=== PATIENT | female | born 1990 | race Two or more races ===

== ENCOUNTER 2016-11-22 17:16 | Emergency (ER) | payer MEDICAID ==
[~2016-11-22] VITALS: Ht 167.6 cm; Wt 66.5 kg
[~2016-11-22 17:16] MED LIST: IBUP-1542 PO; PRENAT PO; TRAM50TA2 PO
[2016-11-22 17:19] VITALS: Ht 167.6 cm; Wt 66.5 kg
--- NOTE | 2016-11-22 18:38 | ERD ---
ER Documentation Chief Complaint Date/Time DATE: 11/22/16 TIME: 18:33 Chief Complaint swelling /abscess/ lump @ right armpit HPI This 26-year-old female presents to the emergency department today for axilla pain, swelling, symptoms started in October with worsening, patient reports past history of a facial cyst which was removed in the same area at age 13. Patient denies any redness, fever, or discharge from the lab. ROS All systems reviewed and are negative except as per history of present illness. Medications Home Meds Active Scripts Naproxen* (Naprosyn*) 500 Mg Tablet, 500 MG PO BID Y for PAIN AND/OR INFLAMMATION, #20 TAB Prov:DASHA,VINNIE 11/22/16 Doxycycline Hyclate* (Doxycycline Hyclate*) 100 Mg Tablet.dr, 100 MG PO BID for 10 Days, TAB Prov:ADSHA,VINNIE 11/22/16 Tramadol HCl (Tramadol HCl) 50 Mg Tablet, 50 MG PO Q4 Y for PAIN, #20 TAB no driving or operating heavy machinery Prov:DEBORA MARTEL PA-C 02/02/16 Ibuprofen* (Motrin*) 600 Mg Tab, 600 MG PO Q6H Y for PAIN AND OR ELEVATED TEMP, #30 TAB Prov:LEXIE SOLIMAN NP 01/29/16 Ibuprofen* (Ibuprofen*) 600 Mg Tab, 600 MG PO Q6, #20 0 Refills Prov:JACOB CAMARGO MD 10/20/14 Reported Medications Multivit/Min/Fol Ac/Iron/Pren* ( S*) 1 Tab Tab, 1 TAB PO DAILY, TAB 04/08/14 Allergies Allergies: Coded Allergies: No Known Drug Allergies (Verified Allergy, Unknown, 11/22/16) PMhx/Soc History of Surgery: Yes ( R underarm hydrogenit Sx) Anesthesia Reaction: No Hx Neurological Disorder: No Hx Respiratory Disorders: No Hx Cardiac Disorders: No Hx Psychiatric Problems: No Hx Miscellaneous Medical Probl: No Hx Alcohol Use: No Hx Substance Use: No Hx Tobacco Use: No Smoking Status: Never smoker Physical Exam Vitals Vital Signs Date Time Temp Pulse Resp B/P Pulse Ox O2 Delivery O2 Flow Rate FiO2 11/22/16 20:21 66 16 113/74 96 Room Air 11/22/16 17:19 99.1 80 17 120/74 99 Stable, triage notes reviewed Physical Exam Const: Well-nourished well-hydrated well-appearing in no acute distress Head: Eyes: ENT: Neck: Resp: Cardio: Abd: Skin: Normal temperature, normal color fluctuating right axilla Back: No midline or flank tenderness Ext: Upper Extremity - bilateral: Skin: No laceration, or evidence of external trauma, soft palpable fluctuating mass right axilla without redness, palpable tenderness Compartments: Soft Motor: Full active range of motion shoulder/elbow/wrist/ hand Sensation: Intact shoulder/pinky/middle finger/thumb web space Bones: Nontender humerus/elbow/forearm/wrist/hand, right axilla tenderness Pulses/Perfusion: 2+ radial, Capillary refill < 2 seconds Neur: Awake and alert Psych: Normal Mood and Affect Results 24 hrs Current Medications Medications (Trade) Dose Ordered Sig/Del Route PRN Reason Start Time Stop Time Status Last Admin Dose Admin Ibuprofen (Motrin) 400 mg ONCE ONCE PO 11/22/16 19:00 11/22/16 19:01 DC 11/22/16 18:44 Procedures/MDM PROCEDURE: Ultrasound of the soft tissues of the right axilla. CLINICAL INDICATION: Palpable lesion in the right axilla. TECHNIQUE: High-resolution sonography of the right axilla at the site of the palpable lesion was performed in the axial and sagittal planes. COMPARISON: None FINDINGS: There is no fluid collection or mass at the site of the palpable lesion in the right axilla. There is no abnormality at the site of the palpable lesion. IMPRESSION: 1. No abnormality at the site of the palpable lesion in the right axilla. 2. Any further management regarding the palpable lesion should be based on clinical grounds. Electronically viewed and signed by .Toby Evans MD, MD on 11/22/2016 19:22 This pleasant 26-year-old female presents to emergency department for evaluation of right axillary fluctuating mass without pustule, drainage, fever, or chills. History of a sebaceous cyst status post removal age 13. Patient reports she has been asymptomatic until recently. Patient reports pain with movement, and swelling. Emergency room course today includes history and physical exam, a right axilla ultrasound to rule out abscess or fluid collection. Radiologist's impression no abnormality at the site of palpable lesion in the right axilla, no fluid collection. This case discussed with supervising physician Dr. Birmingham he plan to discharge patient home with doxycycline 100 mg 1 tab p.o. twice daily, Naprosyn 500 mg 1 tab p.o. twice daily, follow- up with primary care physician or go to [facility] for reevaluation and/or surgical intervention. Patient is stable with no new complaints during ER course, clinically there is no current evidence to suggest abscess, folliculitis, lymphedema, or any other emergent condition appearing to require further evaluation or hospitalization. I feel the patient is stable for discharge at this time. I have discussed results, examination findings, the treatment plan with the patient and family present prior to discharge. Indications for emergent reevaluation, side effects of medication were also discussed. All questions were answered. Patient verbalizes understanding and agrees with plan of care. Departure Diagnosis: Primary Impression: Axillary mass Laterality: right Qualified Code: R22.31 - Mass of right axilla Condition: Good Patient Instructions: [place] Additional Instructions: Thank you for for coming to [facility] for your care today. Please ask your nurse or provider if you have questions about your care today and do not leave until all your questions have been answered. Please use any medications given as directed and follow-up with your doctor (or the doctor you were referred to) in the next 2-3 days. If you do not have a primary care doctor you may follow up at the [facility] (listed below). You may also use motrin and tylenol as needed for fever and/or pain unless instructed otherwise by your provider or nurse. Indications for more urgent follow-up have been discussed, but you may return to the Emergency Department at ANY time for any worrisome or worsening symptoms. If you have abdominal pain, please know that no test or exam you received is perfect and you should follow up within 8 hours for continued pain. If you had any imaging studies today, such as an X-Ray or CT Scan, these studies will be reviewed later by a radiologist. You will be called if there are important findings that were not identified today, so make sure the contact information you provided at registration is correct. If you received any narcotic pain control medicine today, such as Vicodin, Morphine or Dilaudid, your coordination and judgment may be affected for a number of hours. Please do not drive or operate heavy machinery, and you may want someone to assist you at home. If you were given a prescription for narcotic medication, be aware that it is very addictive- use sparingly and only if necessary. VINNIE LOU Nov 22, 2016 18:38
[2016-11-22] MEDS ORDERED: IBUPROFEN 200 MG TAB PO ONE (19:00)
--- NOTE | 2016-11-22 19:22 | RADRPT ---
PROCEDURE: Ultrasound of the soft tissues of the right axilla. CLINICAL INDICATION: Palpable lesion in the right axilla. TECHNIQUE: High-resolution sonography of the right axilla at the site of the palpable lesion was p erformed in the axial and sagittal planes. COMPARISON: None FINDINGS: There is no fluid collection or mass at the site of the palpable lesion in the right axilla. There is no abnormality at the site of the palpable lesion. IMPRESSION: 1. No abnormality at the site of the palpable lesion in the right axilla. 2. Any further management regarding the palpable lesion should be based on clinical grounds. RPTAT: QQ .Toby Evans MD, MD Date Time Electronically viewed and signed by .Toby Evans MD, MD on 11/22/2016 19:22 .R/
[2016-11-22] MEDS ORDERED: DOXY100T20 PO (20:01)
[2016-11-22] MEDS ORDERED: NAPR-260 PO (20:02)
[2016-11-22 20:21] VITALS: BP 113/74; PULSE 66; RESP 16
== END 2016-11-22 20:22 | disposition home or self-care (01) ==
LOC: FTE 17:16
DX: R22.31 Localized swelling, mass and lump, right upper limb (principal)
CPT/HCPCS: 76882; Z7502; Z7610

== ENCOUNTER 2017-02-21 18:26 | Emergency (ER) | END 2017-02-22 01:00 | disposition left against medical advice (07) ==

== ENCOUNTER 2017-03-01 12:22 | Emergency (ER) | END 2017-03-01 17:32 | disposition home or self-care (01) ==

== ENCOUNTER 2017-03-02 13:25 | Emergency (ER) | END 2017-03-02 15:33 | disposition home or self-care (01) ==

== ENCOUNTER 2017-03-04 09:45 | Emergency (ER) | END 2017-03-04 15:09 | disposition home or self-care (01) ==

== ENCOUNTER 2017-07-31 07:29 | Emergency (ER) | END 2017-07-31 09:46 | disposition home or self-care (01) ==

== ENCOUNTER 2017-09-06 03:04 | Emergency (ER) | END 2017-09-06 07:11 | disposition left against medical advice (07) ==

== ENCOUNTER 2017-12-14 10:40 | Outpatient (CLI) | END 2017-12-14 13:45 | disposition home or self-care (01) ==

== ENCOUNTER 2018-01-08 15:00 | Inpatient (IN) | END 2018-01-09 17:50 | disposition home or self-care (01) | DRG 833 ==

== ENCOUNTER 2018-02-16 20:32 | Outpatient (CLI) | payer OTHER ==
[~2018-02-16] VITALS: Ht 167.6 cm; Wt 80.2 kg
[2018-02-16 20:25] VITALS: Ht 167.6 cm; Wt 80.2 kg
[~2018-02-16 20:32] MED LIST changes: -IBUP-1542 PO; -TRAM50TA2 PO
[2018-02-16 20:41] VITALS: BP 99/67; PULSE 90; RESP 17
[2018-02-16] MEDS ORDERED: INSU100V3 IJ ×2 (20:53→20:55)
[2018-02-16] MEDS ORDERED: NPH,100V SQ (20:56)
[2018-02-17] MEDS ORDERED: DEXTROSE 5%-LR 1,000 ML IV SCH (05:30)
[2018-02-17] MEDS ORDERED: LACTATED RINGER'S 1,000 ML IV ONE (05:30)
--- NOTE | 2018-02-17 12:17 | PN ---
Triage Information Date/Time February 17, 2017 Reason for visit: Uterine contractions Weeks of Gestation 37-week /Para 6 para 2 Diabetes: gestational Diabetes management: insulin controlled Hypertention: none Additional information Patient uterine contractions subsided over time Patient apparently has breech presentation Objective Vital Signs Date Temp Pulse Resp B/P (MAP) Pulse Ox O2 O2 Flow FiO2 Time Delivery Rate 02/16/18 98.3 90 17 99/67 (78) Room Air 20:41 Intake and Output 02/16/18 02/16/18 02/17/18 1414:59 22:59 06:59 IntakeIntake Total 670 ml OutputOutput Total 200 ml BalanceBalance 470 ml Heart Rate: 140's Heart Rate Comments Reactive Contractions: < 5 Minutes Apart Exam Long and 1 cm Results/Medications Results 24 hrs Laboratory Tests Test 02/16/18 21:17 02/17/18 04:03 02/17/18 07:03 Urine Color STRAW Urine Clarity CLEAR Urine pH 6.0 Urine Specific [place] 1.006 Urine Ketones NEGATIVE Urine Nitrite NEGATIVE Urine Bilirubin NEGATIVE Urine Urobilinogen NEGATIVE Urine Leukocyte Esterase NEGATIVE Urine Hemoglobin NEGATIVE Urine Glucose 3+ H Urine Total Protein NEGATIVE Bedside Glucose 89 82 Medications Current Medications Dextrose/Lactated Ringer's 1,000 ml @ 125 mls/hr Q8H IV Last administered on 02/17/18at 07:04; Admin Dose 125 MLS/HR; Start 02/17/18 at 05:30 Imaging Results 1. Biophysical profile score 8/8. 2. Amniotic fluid index is not measured at 9.1 cm, previously 13.8 cm on the study of 02/12/2018. 3. Breech presentation. Disposition: Discharge Assessment/Plan Patient uterine contractions subsided over time Was recommended to continue care Refer to OB triage in case of ruptured membrane and or uterine contractions immediately Continue insulin and diet as before JACOB CAMARGO MD Feb 17, 2018 12:17
--- NOTE | 2018-02-17 14:05 | NSTRPT ---
NST Information Datetime Report Generated by CPN: 02/17/2018 14:05 Datetime: 02/13/2018 14:07 NST Information EGA: 36.4 Test Number: 2 Time on Monitor: 02/13/2018 14:22 Time off Monitor: 02/13/2018 15:02 NST Duration (Min): 40 Reason for NST: Diabetes Mellitus; Other Reason for NST Other: A2DM Test and Monitor Explained: Monitor Explained; Test Explained; Verbalized Understanding Pulse: 77 Resp: 18 SBP: 110 DBP: 68 Test Evaluation NST Interventions: None Patient States Movement: Present Contraction Frequency: x 1/90/mild FHR Baseline : 135 Variability: Moderate 6-25bpm Accelerations: 15X15 Decelerations: None FHR Category: Category I NST Results: Reactive Provider Notified: Dr Neno kent blood sugar-julieta consult done Comments: MARYJANE 14.5 CM EFW 60% 3177 GM, 7# 0 OZ AC= 96% FBS 52 Pt instructed in [place] by Augustine Whitlock RN regarding dietary selections _ insulin dosage-Dr Tafti ad justed bedtime _ nph insulin coverage. Pt was incorrectly administering the evening dosage. She was m ixing the nph dose at bedtime with the regular that was to be given before dinner, then repeating the nph at bedtime. Proper dosing reviewed several times _ pt given a written guide for insulin dosage _ correct times to use insulin. Pt verbalizes understanding. Augustine whitlock RN instructed patient in [facility] to us after nst Electronically Signed By E-Signature: with User ID: [id number] Datetime: 02/06/2018 13:30 NST Information EGA: 35.4 NST Duration (Min): 36
== END 2018-02-17 12:25 | disposition home or self-care (01) ==
LOC: OBT 20:32 → L-D 20:33 → OBT 02-17 12:25
PROVIDERS: ATTEND Obstetrics & Gynecology
DX: O62.9 Abnormality of forces of labor, unspecified (principal); O32.1XX0 Maternal care for breech presentation, not applicable or unspecified; O24.414 Gestational diabetes mellitus in pregnancy, insulin controlled; Z3A.37 37 weeks gestation of pregnancy
CPT/HCPCS: 36415; 76818; 81003; 82962; 87086; J7120; J7121; Z7500; G0463

== ENCOUNTER 2018-02-19 14:18 | Inpatient (IN) | payer OTHER ==
[~2018-02-19] VITALS: Ht 167.6 cm; Wt 79.5 kg
[~2018-02-19 14:18] MED LIST changes: +INSU100V3 IJ; +NPH,100V SQ
[2018-02-19] MEDS ORDERED: NPH,100V SQ (15:08)
[2018-02-19 15:09] VITALS: BP 105/66; PULSE 90; RESP 18; Ht 167.6 cm; Wt 79.5 kg
[2018-02-19] MEDS: LACTATED RINGER'S 1,000 ML IV SCH ×2 (16:15→21:26)
[2018-02-19] MEDS ORDERED: GLUCOSE GEL 15 GRAM TUBE BUCCAL PRN (18:00)
[2018-02-19] MEDS ORDERED: GLUCOSE GEL 15 GRAM TUBE PO PRN ×2 (18:00)
[2018-02-19] MEDS ORDERED: DEXTROSE 50% 50 ML SYRINGE IV PRN ×2 (18:00)
[2018-02-19] MEDS ORDERED: ACETAMINOPHEN 325 MG TAB PO PRN (18:00)
[2018-02-19] MEDS ORDERED: GLUCAGON 1 MG INJ IM PRN (18:00)
--- NOTE | 2018-02-19 18:43 | TRIAGE ---
OB Triage Datetime Report Generated by CPN: 02/19/2018 18:43 Datetime: 02/19/2018 17:00 Stage of : OB Triage Maternal Assessment Level of Consciousness: Fully Conscious Labor Evaluation Frequency: 6UC/HR Monitor Mode: External Duration (sec)2399: 80-120 Quality: Mild Resting Tone [place]: Relaxed Heart Rate FHR Baseline Rate: 135 Monitor Mode: External US Variability: Moderate 6-25 bpm Accelerations: 15X15 Decelerations: None Category: Category I Pain Assessment Pain Scale: 0 Pain Goal: 3 Membrane Status: Intact Vaginal Bleeding: None Datetime: 02/19/2018 16:00 Stage of : OB Triage Maternal Assessment Level of Consciousness: Fully Conscious Labor Evaluation Frequency: 3-9 Monitor Mode: External Duration (sec)2399: 80-110 Quality: Mild Resting Tone [place]: Relaxed Heart Rate FHR Baseline Rate: 145 Monitor Mode: External US Variability: Moderate 6-25 bpm Accelerations: 15X15 Decelerations: None Category: Category I Pain Assessment Pain Scale: 0 Pain Goal: 3 Membrane Status: Intact Vaginal Bleeding: None Datetime: 02/19/2018 15:36 Vaginal Exam Dilatation (cms): 1.0 Effacement (%): 50 Station: -3 Exam By: henny Vaginal Bleeding: None Cervix, Consistency: Moderate Cervix, Position: Midposition Datetime: 02/19/2018 15:04 Assessment Type: Triage Maternal Assessment Level of Consciousness: Fully Conscious DTR's/Clonus: DTRs 2+; No Clonus Headache: Denies Blurred Vision: No Respiratory Effort: Unlabored; Regular Rhythm; Equal Expansion Breath Sounds, Left: Clear and Equal Breath Sounds, Right: Clear and Equal Nausea/Vomiting: Denies RUQ Epigastric Pain: Denies Lower Extremities Edema: None Degree: None Upper Extremities Edema: None Degree: None Facial Edema: None Fall Risk Assessment History of Falling: (0) No Secondary Diagnosis: (0) No Ambulatory Aid: (0) Bedrest/Nurse Assist IV Therapy: (0) No Gait: (0) Normal/Bedrest/Immobile Mental Status: (0) Oriented to Own Ability Fall Score: 0 Fall Risk Score Definition: No Risk: No action required Datetime: 02/19/2018 14:39 Time of Arrival: 02/19/2018 14:12 EGA: 38.4 Arrived By: Ambulatory Arrived From: Home Chief Complaint: pt here C/O SPOTTING X 1 [place] Movement: Present Contractions: Irregular Rupture of Membranes: Denies Vaginal Bleeding: None Vaginal Discharge: Denies Recent Sexual Intercouse: Denies Abdominal Trauma: Not Applicable Patient Complaints: Cramping Time Provider Notified: 02/19/2018 15:41 Provider Notified: GOYO Initial Plan: EFM/SVE/ IV HYDRATION Datetime: 02/17/2018 12:02 Labor Evaluation Frequency: x1 Monitor Mode: External Duration (sec)2399: 60 Quality: Mild Pattern: Normal: <= 5 Contractions in 10 Minutes Resting Tone [place]: Relaxed Heart Rate FHR Baseline Rate: 135 Monitor Mode: External US Variability: Moderate 6-25 bpm Accelerations: 15X15 Decelerations: None Category: Category I Datetime: 02/17/2018 11:00 Pattern: Normal: <= 5 Contractions in 10 Minutes Resting Tone [place]: Relaxed Contraction Comments: no uc Heart Rate FHR Baseline Rate: 145 Monitor Mode: External US Variability: Moderate 6-25 bpm Category: Category I Datetime: 02/17/2018 10:00 Pattern: Normal: <= 5 Contractions in 10 Minutes Resting Tone [place]: Relaxed Contraction Comments: no uc Heart Rate FHR Baseline Rate: 135 Monitor Mode: External US Variability: Moderate 6-25 bpm Category: Category I Pain Location: Back Datetime: 02/17/2018 09:01 Labor Evaluation Frequency: x3 Monitor Mode: External Duration (sec)2399: 60-100 Quality: Mild Pattern: Normal: <= 5 Contractions in 10 Minutes Resting Tone [place]: Relaxed Heart Rate FHR Baseline Rate: 135 Monitor Mode: External US Variability: Moderate 6-25 bpm Accelerations: 15X15 Decelerations: None Category: Category I Pain Assessment Pain Scale: 8 Pain Location: Back Pain Goal: 3 Datetime: 02/17/2018 09:00 Vaginal Exam Dilatation (cms): 1.5 Effacement (%): 60 Station: -3 Exam By: wliu Datetime: 02/17/2018 07:49 Labor Evaluation Frequency: x1 Monitor Mode: External Duration (sec)2399: 50 Quality: Mild Pattern: Normal: <= 5 Contractions in 10 Minutes Resting Tone [place]: Relaxed Heart Rate FHR Baseline Rate: 135 Monitor Mode: External US Variability: Moderate 6-25 bpm Accelerations: 15X15 Decelerations: None Category: Category I Pain Assessment Pain Scale: 8 Pain Presence: Intermittent Pain Type: Contraction Pain Location: Abdomen Pain Goal: 3 Datetime: 02/17/2018 07:10 Heart Rate FHR Baseline Rate: 145 Monitor Mode: External US FHR Baseline Changes: No Baseline Change Variability: Moderate 6-25 bpm Accelerations: 15X15 Decelerations: None Category: Category I Datetime: 02/17/2018 06:58 Stage of : Antepartum Maternal Assessment Level of Consciousness: Fully Conscious DTR's/Clonus: DTRs 2+ Headache: Temporal Blurred Vision: No Nausea/Vomiting: Denies RUQ Epigastric Pain: Denies Bedside Blood Glucose: 82 Labor Evaluation Frequency: 10-15 Monitor Mode: External Duration (sec)2399: 50-60 Quality: Mild Pattern: Normal: <= 5 Contractions in 10 Minutes Resting Tone [place]: Relaxed Pain Assessment Pain Scale: 5 Pain Presence: Constant Pain Type: Dull; Ache Pain Location: Head Pain Goal: 0 Pain Relief Measures: Comfort Measures Pain Assessment Comments: PT C/O HEADACHE AND VERTIGO UNTIL I LOWERED HER HEAD...FS 82..WILL START D5 L/R IV ORDERED Membrane Status: Intact Datetime: 02/17/2018 05:28 Heart Rate FHR Baseline Rate: 140 FHR Baseline Changes: No Baseline Change Variability: Moderate 6-25 bpm Accelerations: 15X15 Decelerations: None Category: Category I Datetime: 02/17/2018 05:10 Maternal Assessment Level of Consciousness: Fully Conscious DTR's/Clonus: DTRs 2+ Headache: Denies Blurred Vision: No Respiratory Effort: Unlabored Breath Sounds, Left: Clear and Equal Breath Sounds, Right: Clear and Equal Nausea/Vomiting: Denies RUQ Epigastric Pain: Denies Labor Evaluation Frequency: 10-12 Monitor Mode: External Duration (sec)2399: 60-65 Quality: Moderate Pattern: Normal: <= 5 Contractions in 10 Minutes Resting Tone [place]: Relaxed Heart Rate FHR Baseline Rate: 140 Monitor Mode: External US FHR Baseline Changes: No Baseline Change Variability: Moderate 6-25 bpm Accelerations: 15X15 Decelerations: None Category: Category I Pain Assessment Pain Scale: 8 Pain Presence: Intermittent Pain Type: Cramping; Contraction Pain Location: Abdomen Pain Goal: 2 Pain Relief Measures: Comfort Measures Membrane Status: Intact Datetime: 02/17/2018 04:25 Stage of : OB Triage Labor Evaluation Frequency: 3-4 Monitor Mode: External Duration (sec)2399: 30-40 Quality: Mild Pattern: Normal: <= 5 Contractions in 10 Minutes Resting Tone [place]: Relaxed Datetime: 02/17/2018 03:59 Maternal Assessment Level of Consciousness: Fully Conscious DTR's/Clonus: DTRs 2+ Headache: Denies Blurred Vision: No Respiratory Effort: Unlabored Breath Sounds, Left: Clear and Equal Breath Sounds, Right: Clear and Equal Nausea/Vomiting: Denies RUQ Epigastric Pain: Denies Facial Edema: None Bedside Blood Glucose: 89 Heart Rate FHR Baseline Rate: 145 Monitor Mode: External US FHR Baseline Changes: No Baseline Change Variability: Moderate 6-25 bpm Accelerations: 15X15 Decelerations: None Category: Category I Pain Presence: Intermittent Pain Type: Cramping; Contraction Pain Location: Abdomen Pain Relief Measures: Comfort Measures Membrane Status: Intact Datetime: 02/17/2018 03:00 Labor Evaluation Frequency: occasional Monitor Mode: External Heart Rate FHR Baseline Rate: 130 Monitor Mode: External US Variability: Moderate 6-25 bpm (Annotations: period of minimal variability) Accelerations: 15X15 Decelerations: None Category: Category I Comments: Some loss of contact Datetime: 02/17/2018 02:33 Stage of : OB Triage Temperature Route: Oral Datetime: 02/17/2018 02:31 Quality: Mild Resting Tone [place]: Relaxed Pain Assessment Pain Scale: 8 Pain Presence: Intermittent Pain Type: Contraction Pain Location: Abdomen; Back Pain Relief Measures: Comfort Measures Pain Assessment Comments: Patient is calm and appears comfortable. Patient is sleeping in between c are. Datetime: 02/17/2018 02:01 Labor Evaluation Frequency: 8-10 Monitor Mode: External Duration (sec)2399: 120-180 Pattern: Normal: <= 5 Contractions in 10 Minutes Heart Rate FHR Baseline Rate: 135 Monitor Mode: External US Variability: Moderate 6-25 bpm Accelerations: 15X15 Decelerations: None Category: Category I Comments: Some loss of contact Datetime: 02/17/2018 01:22 Resting Tone [place]: Relaxed Datetime: 02/17/2018 01:16 Quality: Mild Resting Tone [place]: Relaxed Datetime: 02/17/2018 01:15 Vaginal Exam Dilatation (cms): 2.0 Effacement (%): 60 Station: -3 Exam By: Ines Cohn RN Cervix, Consistency: Moderate Cervix, Position: Posterior Datetime: 02/17/2018 01:14 Monitor Mode: Palpation Quality: Mild Resting Tone [place]: Relaxed Datetime: 02/17/2018 01:00 Labor Evaluation Frequency: x1 Monitor Mode: External Duration (sec)2399: 110 Pattern: Normal: <= 5 Contractions in 10 Minutes Heart Rate FHR Baseline Rate: 135 Monitor Mode: External US Variability: Moderate 6-25 bpm Accelerations: 15X15 Decelerations: None Category: Category I Datetime: 02/17/2018 00:52 Quality: Mild Resting Tone [place]: Relaxed Pain Assessment Pain Scale: 8 Pain Presence: Intermittent Pain Type: Contraction Pain Location: Back Pain Relief Measures: Comfort Measures Pain Assessment Comments: Patient is calm and appears comfortable. Datetime: 02/17/2018 00:43 Quality: Mild Resting Tone [place]: Relaxed Datetime: 02/17/2018 00:00 Labor Evaluation Frequency: 6-9 Monitor Mode: External Duration (sec)2399: 40-130 Pattern: Normal: <= 5 Contractions in 10 Minutes Heart Rate FHR Baseline Rate: 130 Monitor Mode: External US Variability: Moderate 6-25 bpm Accelerations: 15X15 Decelerations: None Category: Category I Comments: Some loss of contact Datetime: 02/16/2018 23:43 Quality: Mild Resting Tone [place]: Relaxed Datetime: 02/16/2018 23:20 Quality: Mild Resting Tone [place]: Relaxed Pain Assessment Pain Scale: 8 Pain Presence: Intermittent Pain Type: Contraction Pain Location: Abdomen Pain Relief Measures: Comfort Measures Pain Assessment Comments: Patient is calm and appears comfortable. Datetime: 02/16/2018 23:19 Vaginal Exam Dilatation (cms): 1.5 Effacement (%): 60 Station: -3 Exam By: Ines Cohn RN Vaginal Bleeding: None Cervix, Consistency: Moderate Cervix, Position: Posterior Datetime: 02/16/2018 23:00 Labor Evaluation Frequency: occasional Monitor Mode: External Duration (sec)2399: 40-60 Pattern: Normal: <= 5 Contractions in 10 Minutes Heart Rate FHR Baseline Rate: 135 Monitor Mode: External US Variability: Moderate 6-25 bpm Accelerations: Prolonged Decelerations: None Category: Category I Datetime: 02/16/2018 22:54 Quality: Mild Resting Tone [place]: Relaxed Datetime: 02/16/2018 22:11 Quality: Mild Resting Tone [place]: Relaxed Pain Assessment Pain Scale: 8 Pain Presence: Intermittent Pain Type: Contraction Pain Location: Abdomen Pain Relief Measures: Comfort Measures Pain Assessment Comments: Patient is calm and appears comfortable. Datetime: 02/16/2018 22:00 Labor Evaluation Frequency: occasional Monitor Mode: External Duration (sec)2399: 40-120 Pattern: Normal: <= 5 Contractions in 10 Minutes Heart Rate FHR Baseline Rate: 140 Monitor Mode: External US Variability: Moderate 6-25 bpm Accelerations: 15X15 Decelerations: None Category: Category I Datetime: 02/16/2018 21:09 Quality: Mild Resting Tone [place]: Relaxed Datetime: 02/16/2018 21:05 Quality: Mild Resting Tone [place]: Relaxed Datetime: 02/16/2018 21:04 Vaginal Exam Dilatation (cms): 1.5 Effacement (%): 60 Station: -3 Exam By: Ines Cohn RN Vaginal Bleeding: None Cervix, Consistency: Moderate Cervix, Position: Midposition Datetime: 02/16/2018 21:02 Labor Evaluation Frequency: x1 Monitor Mode: External Duration (sec)2399: 80 Pattern: Normal: <= 5 Contractions in 10 Minutes Heart Rate FHR Baseline Rate: 140 Monitor Mode: External US Variability: Moderate 6-25 bpm Accelerations: 15X15 Decelerations: None Category: Category I Datetime: 02/16/2018 20:41 Stage of : OB Triage Assessment Type: Triage Maternal Assessment Level of Consciousness: Fully Conscious DTR's/Clonus: DTRs 2+; No Clonus Headache: Denies Blurred Vision: No Respiratory Effort: Unlabored; Regular Rhythm; Equal Expansion Breath Sounds, Left: Clear and Equal Breath Sounds, Right: Clear and Equal Nausea/Vomiting: Denies RUQ Epigastric Pain: Denies Lower Extremities Edema: None Degree: None Upper Extremities Edema: None Degree: None Facial Edema: None Temperature Route: Oral Fall Risk Assessment History of Falling: (0) No Secondary Diagnosis: (0) No Ambulatory Aid: (0) Bedrest/Nurse Assist IV Therapy: (0) No Gait: (0) Normal/Bedrest/Immobile Mental Status: (0) Oriented to Own Ability Fall Score: 0 Fall Risk Score Definition: No Risk: No action required Comments: Patient states she feels active movement. Pain Assessment Pain Scale: 8 Pain Presence: Intermittent Pain Type: Contraction Pain Location: Abdomen Pain Relief Measures: Comfort Measures Pain Assessment Comments: Patient is calm and appears comfortable. Datetime: 02/16/2018 20:39 Monitor Mode: External (Annotations: applied) Monitor Mode: External US (Annotations: applied) Datetime: 02/16/2018 20:25 Time of Arrival: 02/16/2018 20:25 EGA: 37.0 Arrived By: Ambulatory Arrived From: Home Chief Complaint: Contractions [id number] that started at 0900 Movement: Present Contractions: Regular Time Contractions Began: 02/16/2018 09:00 Contractions: [id number] per patient Rupture of Membranes: Denies Vaginal Bleeding: None Vaginal Discharge: Denies Recent Sexual Intercouse: Denies Abdominal Trauma: Not Applicable Patient Complaints: Contractions Additional Patient Complaints: history of gestational diabetes on insulin Time Provider Notified: 02/16/2018 21:13 Provider Notified: Dr. Castorena Initial Plan: EFM x2, SVE Datetime: 02/06/2018 13:48 EGA: 36.3 Datetime: 01/08/2018 19:25 Fall Score: 20 Fall Risk Score Definition: No Risk: No action required Datetime: 01/08/2018 17:48 Fall Score: 20 Fall Risk Score Definition: No Risk: No action required Datetime: 01/08/2018 13:15 Fall Score: 0 Fall Risk Score Definition: No Risk: No action required Datetime: 12/14/2017 12:51 EGA: 31.3 Datetime: 12/14/2017 10:48 EGA: 27.6 Datetime: 12/14/2017 10:47 Fall Score: 0 Fall Risk Score Definition: No Risk: No action required
[2018-02-19] MEDS ORDERED: NPH, HUMAN INSULIN ISOPHANE 3ML VIAL SC SCH (21:00)
[2018-02-20] MEDS: LACTATED RINGER'S 1,000 ML IV SCH ×2 (05:16→06:42)
[2018-02-20] MEDS ORDERED: NPH, HUMAN INSULIN ISOPHANE 3ML VIAL SC SCH (07:05)
[2018-02-20] MEDS ORDERED: INSULIN ASPART [NOVOLOG] 3 ML PEN SC SCH (07:35)
[2018-02-20] MEDS ORDERED: PRENATAL VITAMIN PO SCH (09:00)
--- NOTE | 2018-02-20 14:43 | HP ---
Date/Time of Note Date/Time of Note DATE: 02/20/18 TIME: 14:40 OB - History Hx of Present Free Text/Dictation 27-year-old female 6 para 2 AB 3 at 37 weeks and 2 days gestation admitted complaining of the uterine contractions and vaginal spotting few hours prior to admission Last Menstrual Period: May 25, 2018 Estimated Due Date: Mar 02, 2018 : 6 Para: 2 Spontaneous : 3 Care: Good Care Ultrasounds: Normal mid trimester US Obstetrical Complications: Gestational Diabetes Medical Complications: None Past Family/Social History * Past Medical, Surgical, Family and Obstetric Histories reviewed from chart. Blood Type: O+ Rubella: immune RPR/VDRL: Negative GBS Status: Unknown HBsAG: Negative OB Admission Exam Vital Signs Vital Signs Vital Signs Date Temp Pulse Resp B/P (MAP) Pulse Ox O2 O2 Flow FiO2 Time Delivery Rate 02/19/18 98.6 90 18 105/66 Room Air 15:09 (79) Physical Exam HEENT: WNL Heart: Rhythm Normal Lungs: Clear, Equal Abdomen: WNL Extremities: Normal Reflexes: Normal Cervical Dilatation: Fingertip Effacement: 0% Station: -3 Membranes: Intact Heart Rate: 140's Accelerations: Accelerations Present Decelerations: No Decelerations Varibility: Marked Contractions on Admission: >10 Minutes Apart Date/Time Contractions Began: 02/19/2017 p.m. Frequency of Contractions: Every 10-15 minutes Duration: Over 30 seconds Intensity: Mild Last 72 hourBlood Glucose Bedside Glucose - 72 Hours Test 02/19/18 20:11 02/20/18 08:44 02/20/18 11:06 Bedside Glucose 110 mg/dL (70-220) 84 mg/dL (70-220) 81 mg/dL (70-220) OB Assessment/Plan Other Assessment: 37 weeks and 3 days gestation Possible uterine contractions Breech presentation Other plan: Patient was admitted for IV hydration and observation JACOB CAMARGO MD Feb 20, 2018 14:43
--- NOTE | 2018-02-20 14:45 | DS ---
Date/Time of Note Date/Time of Note Over the course of observation patient associated to uterine contraction was subsequently discharged home [facility] Should patient show herself in labor beyond 38 weeks will promptly deliver DATE: 02/20/18 TIME: 14:43 Obstetrical Discharge Record Final Diagnosis Final Diagnosis: Term not delivered Other Final Diagnosis Uterine contractions Complications Gestational Diabetes Condition on Discharge Physical Assessment Last Vitals: See nurse's note Voiding: Yes Bowel Movement: Yes Breast: Soft, non-tender, Filling Fundus: Other Abdomen and Incision: Abdomen is soft and gravid heart tones are reactive On electronic monitoring minimal uterine contractions seen on admission Episiotomy: Not applicable Calf Tenderness: No Patient Condition: Good JACOB CAMARGO MD Feb 20, 2018 14:45
--- NOTE | 2018-02-20 14:51 | PD.PPDC ---
[employer] Discharge Instruction Provider Information Physician Information 27-year-old female admitted with irregular uterine contractions every 10-15 minutes which was associated with IV hydration Diagnosis [id number] Final Diagnosis: [id number] Patient Condition: [id number] Good Diet [id number] Diet: Aacto4e Special Diet Special Diet: 2000-calorie ADA diet Activity/Restrictions [id number] Activity: [id number] Bedrest May Shower [id number] Restrictions: [id number] Nothing in the Vagina Follow-up Follow-up with Physician: 4, Day/Days (In clinic) Return to clinic for Comment: Refer back to hospital in case of regular uterine contractions or vaginal bleeding or ruptured membrane immediate JACOB CAMARGO MD Feb 20, 2018 14:51
== END 2018-02-20 15:30 | disposition home or self-care (01) | DRG 833 ==
LOC: OBT 14:18 → L-D 14:18 → OBT 17:35 → L-D 19:54
PROVIDERS: ADMIT Obstetrics & Gynecology; ATTEND Obstetrics & Gynecology
DX: O60.03 Preterm labor without delivery, third trimester (principal); Z3A.37 37 weeks gestation of pregnancy
CPT/HCPCS: 36415; 82962; 96360; G0463; J1815; J7120

== ENCOUNTER 2018-02-24 13:29 | Inpatient (IN) | payer OTHER ==
[~2018-02-24] VITALS: Ht 162.6 cm; Wt 79.4 kg
[2018-02-24 13:39] VITALS: Ht 162.6 cm; Wt 79.4 kg
[2018-02-24 13:40] VITALS: BP 118/77; PULSE 107; RESP 20
[2018-02-24] MEDS ORDERED: LACTATED RINGER'S 1,000 ML IV SCH (15:00)
--- NOTE | 2018-02-24 17:04 | TRIAGE ---
OB Triage Datetime Report Generated by CPN: 02/24/2018 17:04 Datetime: 02/24/2018 16:29 Labor Evaluation Frequency: 3-4 Monitor Mode: External Duration (sec)2399: 50-80 Quality: Moderate Pattern: Normal: <= 5 Contractions in 10 Minutes Resting Tone Winger: Relaxed Heart Rate FHR Baseline Rate: 140 Monitor Mode: External US FHR Baseline Changes: No Baseline Change Variability: Moderate 6-25 bpm Accelerations: 15X15 Decelerations: None Category: Category I Pain Assessment Pain Scale: 8 Pain Presence: Intermittent Pain Type: Cramping Pain Location: Abdomen Pain Relief Measures: Comfort Measures Datetime: 02/24/2018 15:30 Labor Evaluation Frequency: 3-5 Monitor Mode: External Duration (sec)2399: 60-100 Quality: Mild Pattern: Normal: <= 5 Contractions in 10 Minutes Resting Tone Winger: Relaxed Heart Rate FHR Baseline Rate: 145 Monitor Mode: External US FHR Baseline Changes: No Baseline Change Variability: Moderate 6-25 bpm Accelerations: 15X15 Decelerations: None Category: Category I Pain Assessment Pain Scale: 7 Pain Presence: Intermittent Pain Type: Cramping Pain Location: Abdomen Pain Relief Measures: Comfort Measures Datetime: 02/24/2018 14:31 Labor Evaluation Frequency: OCC Monitor Mode: External Quality: Mild Pattern: Normal: <= 5 Contractions in 10 Minutes Resting Tone Winger: Relaxed Heart Rate FHR Baseline Rate: 155 Monitor Mode: External US FHR Baseline Changes: No Baseline Change Variability: Moderate 6-25 bpm Accelerations: 15X15 Decelerations: None Category: Category I Pain Assessment Pain Scale: 8 Pain Presence: Intermittent Pain Type: Cramping Pain Location: Abdomen Pain Relief Measures: Comfort Measures Datetime: 02/24/2018 14:27 Vaginal Exam Dilatation (cms): 0.5 Effacement (%): 50 Station: -3 Datetime: 02/24/2018 13:33 Time of Arrival: 02/24/2018 13:25 EGA: 38.1 Arrived By: Ambulatory Arrived From: Home Chief Complaint: UC'S Movement: Present Contractions: Irregular Time Contractions Began: 02/23/2018 21:00 Rupture of Membranes: Denies Vaginal Bleeding: None Vaginal Discharge: Present Recent Sexual Intercouse: Denies Abdominal Trauma: Not Applicable Patient Complaints: Contractions Time Provider Notified: 02/24/2018 14:34 Provider Notified: GOYO Initial Plan: NST, BPP AND MARYJANE, IV HYDRATION Datetime: 02/24/2018 13:31 Stage of : OB Triage Assessment Type: Triage Maternal Assessment Level of Consciousness: Fully Conscious DTR's/Clonus: DTRs 2+; No Clonus Headache: Denies Blurred Vision: No Respiratory Effort: Unlabored; Regular Rhythm; Equal Expansion Breath Sounds, Left: Clear and Equal Breath Sounds, Right: Clear and Equal Nausea/Vomiting: Denies RUQ Epigastric Pain: Denies Lower Extremities Edema: None Upper Extremities Edema: None Facial Edema: None Temperature Route: Oral Fall Risk Assessment History of Falling: (0) No Secondary Diagnosis: (0) No Ambulatory Aid: (0) Bedrest/Nurse Assist IV Therapy: (0) No Gait: (0) Normal/Bedrest/Immobile Mental Status: (0) Oriented to Own Ability Fall Score: 0 Fall Risk Score Definition: No Risk: No action required Pain Assessment Pain Scale: 7 Pain Presence: Intermittent Pain Type: Contraction Pain Location: Abdomen; Back Pain Goal: 8 Datetime: 02/20/2018 14:32 Labor Evaluation Frequency: 0 Monitor Mode: External Pattern: Normal: <= 5 Contractions in 10 Minutes Resting Tone Winger: Relaxed Heart Rate FHR Baseline Rate: 140 Monitor Mode: External US FHR Baseline Changes: No Baseline Change Variability: Moderate 6-25 bpm Accelerations: Prolonged Decelerations: None Category: Category I Datetime: 02/20/2018 14:19 Bedside Blood Glucose: 87 Datetime: 02/20/2018 13:30 Labor Evaluation Frequency: 0 Monitor Mode: External Pattern: Normal: <= 5 Contractions in 10 Minutes Resting Tone Winger: Relaxed Heart Rate FHR Baseline Rate: 140 Monitor Mode: External US FHR Baseline Changes: No Baseline Change Variability: Moderate 6-25 bpm Accelerations: 15X15 Decelerations: None Category: Category I Datetime: 02/20/2018 12:30 Labor Evaluation Frequency: 0 Monitor Mode: External Pattern: Normal: <= 5 Contractions in 10 Minutes Resting Tone Winger: Relaxed Heart Rate FHR Baseline Rate: 140 Monitor Mode: External US FHR Baseline Changes: No Baseline Change Variability: Moderate 6-25 bpm Accelerations: 15X15 Decelerations: None Category: Category I Datetime: 02/20/2018 11:30 Labor Evaluation Frequency: 0 Monitor Mode: External Pattern: Normal: <= 5 Contractions in 10 Minutes Resting Tone Winger: Relaxed Heart Rate FHR Baseline Rate: 130 Monitor Mode: External US FHR Baseline Changes: No Baseline Change Variability: Moderate 6-25 bpm Accelerations: 15X15 Decelerations: None Category: Category I Datetime: 02/20/2018 10:30 Labor Evaluation Frequency: 0 Monitor Mode: External Pattern: Normal: <= 5 Contractions in 10 Minutes Resting Tone Winger: Relaxed Heart Rate FHR Baseline Rate: 130 Monitor Mode: External US FHR Baseline Changes: No Baseline Change Variability: Moderate 6-25 bpm Accelerations: 15X15 Decelerations: None Category: Category I Datetime: 02/20/2018 09:28 Labor Evaluation Frequency: 0 Monitor Mode: External Pattern: Normal: <= 5 Contractions in 10 Minutes Heart Rate FHR Baseline Rate: 130 Monitor Mode: External US FHR Baseline Changes: No Baseline Change Variability: Moderate 6-25 bpm Accelerations: 15X15 Decelerations: None Category: Category I Datetime: 02/20/2018 09:00 Labor Evaluation Frequency: X3 Monitor Mode: External Quality: Mild Pattern: Normal: <= 5 Contractions in 10 Minutes Resting Tone Winger: Relaxed Heart Rate FHR Baseline Rate: 130 Monitor Mode: External US FHR Baseline Changes: No Baseline Change Variability: Moderate 6-25 bpm Accelerations: None Decelerations: None Category: Category I Datetime: 02/20/2018 08:30 Assessment Type: Ongoing Assessment Maternal Assessment Level of Consciousness: Fully Conscious DTR's/Clonus: DTRs 2+; No Clonus Headache: Denies Blurred Vision: No Respiratory Effort: Unlabored; Regular Rhythm; Equal Expansion Breath Sounds, Left: Clear and Equal Breath Sounds, Right: Clear and Equal Nausea/Vomiting: Denies RUQ Epigastric Pain: Denies Lower Extremities Edema: None Degree: None Upper Extremities Edema: None Degree: None Facial Edema: None Fall Risk Assessment History of Falling: (0) No Secondary Diagnosis: (0) No Ambulatory Aid: (0) Bedrest/Nurse Assist IV Therapy: (0) No Gait: (0) Normal/Bedrest/Immobile Mental Status: (0) Oriented to Own Ability Fall Score: 0 Fall Risk Score Definition: No Risk: No action required Datetime: 02/20/2018 08:25 Stage of : Antepartum Temperature Route: Oral Pain Assessment Pain Scale: 6 Pain Presence: Constant Pain Type: Pressure; Ache Pain Location: Back (Annotations: LOWER BACK) Pain Goal: 0 Pain Relief Measures: Pain Medication Given; Comfort Measures Datetime: 02/20/2018 08:00 Monitor Mode: External Monitor Mode: OFF PT IN BR Datetime: 02/20/2018 07:38 Stage of : Antepartum Datetime: 02/20/2018 07:30 Labor Evaluation Frequency: 0 Monitor Mode: External Pattern: Normal: <= 5 Contractions in 10 Minutes Resting Tone Winger: Relaxed Heart Rate FHR Baseline Rate: 130 Monitor Mode: External US FHR Baseline Changes: No Baseline Change Variability: Moderate 6-25 bpm Accelerations: 15X15 Decelerations: None Category: Category I Datetime: 02/20/2018 06:00 Labor Evaluation Frequency: 0 Monitor Mode: External Duration (sec)2399: denies Resting Tone Winger: Relaxed Heart Rate FHR Baseline Rate: 135 Monitor Mode: External US Variability: Moderate 6-25 bpm Accelerations: 15X15 Decelerations: None Category: Category I Pain Presence: None/Denies Datetime: 02/20/2018 05:13 Pain Presence: None/Denies Datetime: 02/20/2018 05:00 Labor Evaluation Frequency: 0 Monitor Mode: External Duration (sec)2399: denies Resting Tone Winger: Relaxed Heart Rate FHR Baseline Rate: 135 Monitor Mode: External US Variability: Moderate 6-25 bpm Accelerations: 15X15 Decelerations: None Category: Category I Pain Presence: None/Denies Datetime: 02/20/2018 04:00 Labor Evaluation Frequency: 0 Monitor Mode: External Duration (sec)2399: denies Resting Tone Winger: Relaxed Heart Rate FHR Baseline Rate: 135 Monitor Mode: External US Variability: Moderate 6-25 bpm Accelerations: 15X15 Decelerations: None Category: Category I Pain Presence: None/Denies Datetime: 02/20/2018 03:00 Labor Evaluation Frequency: 0 Monitor Mode: External Duration (sec)2399: denies Resting Tone Winger: Relaxed Heart Rate FHR Baseline Rate: 135 Monitor Mode: External US Variability: Moderate 6-25 bpm Accelerations: 15X15 Decelerations: None Category: Category I Pain Presence: None/Denies Datetime: 02/20/2018 02:00 Labor Evaluation Frequency: x2 Monitor Mode: External Duration (sec)2399: 50-60 Quality: Mild Resting Tone Winger: Relaxed Heart Rate FHR Baseline Rate: 145 Monitor Mode: External US Variability: Moderate 6-25 bpm Accelerations: 15X15 Decelerations: Variable Category: Category II Datetime: 02/20/2018 01:00 Labor Evaluation Frequency: x1 Monitor Mode: External Duration (sec)2399: 60 Quality: Mild Resting Tone Winger: Relaxed Heart Rate FHR Baseline Rate: 140 Monitor Mode: External US Variability: Moderate 6-25 bpm Accelerations: 15X15 Decelerations: None Category: Category I Pain Presence: None/Denies Datetime: 02/20/2018 00:00 Labor Evaluation Frequency: occasional Monitor Mode: External Duration (sec)2399: 40-50 Quality: Mild Resting Tone Winger: Relaxed Heart Rate FHR Baseline Rate: 160 Monitor Mode: External US Variability: Moderate 6-25 bpm Accelerations: 15X15 Decelerations: None Category: Category I Pain Presence: None/Denies Datetime: 02/19/2018 23:00 Labor Evaluation Frequency: 0 Monitor Mode: External Duration (sec)2399: denies Resting Tone Winger: Relaxed Contraction Comments: abdomen soft upon palpation. Heart Rate FHR Baseline Rate: 155 Monitor Mode: External US Variability: Moderate 6-25 bpm Accelerations: 15X15 Decelerations: None Category: Category I Datetime: 02/19/2018 22:18 Stage of : Antepartum Temperature Route: Oral Pain Presence: None/Denies Datetime: 02/19/2018 22:00 Monitor Mode: External Quality: Mild Pattern: Normal: <= 5 Contractions in 10 Minutes Resting Tone Winger: Relaxed Heart Rate FHR Baseline Rate: 145 FHR Baseline Changes: No Baseline Change Variability: Moderate 6-25 bpm Accelerations: 15X15 Decelerations: None Category: Category I Datetime: 02/19/2018 21:23 Stage of : Antepartum Monitor Mode: External Quality: Mild Pattern: Normal: <= 5 Contractions in 10 Minutes Resting Tone Winger: Relaxed Heart Rate FHR Baseline Rate: 140 Monitor Mode: External US FHR Baseline Changes: No Baseline Change Variability: Moderate 6-25 bpm Accelerations: 15X15 Decelerations: None Category: Category I Pain Assessment Pain Scale: 0 Pain Presence: None/Denies Pain Type: N/A Pain Relief Measures: Pain Medication Given Datetime: 02/19/2018 20:18 Stage of : Antepartum Monitor Mode: External Quality: Mild Pattern: Normal: <= 5 Contractions in 10 Minutes Resting Tone Winger: Relaxed Heart Rate FHR Baseline Rate: 140 Monitor Mode: External US FHR Baseline Changes: No Baseline Change Variability: Moderate 6-25 bpm Accelerations: 15X15 Decelerations: None Category: Category I Datetime: 02/19/2018 20:11 Bedside Blood Glucose: 110 Datetime: 02/19/2018 20:00 Assessment Type: Admission Assessment Maternal Assessment Level of Consciousness: Fully Conscious DTR's/Clonus: DTRs 2+; No Clonus Headache: Denies Blurred Vision: No Respiratory Effort: Unlabored; Regular Rhythm; Equal Expansion Breath Sounds, Left: Clear and Equal Breath Sounds, Right: Clear and Equal Nausea/Vomiting: Denies RUQ Epigastric Pain: Denies Lower Extremities Edema: None Degree: None Upper Extremities Edema: None Degree: None Facial Edema: None Fall Risk Assessment History of Falling: (0) No Secondary Diagnosis: (0) No Ambulatory Aid: (0) Bedrest/Nurse Assist IV Therapy: (20) Yes Gait: (0) Normal/Bedrest/Immobile Mental Status: (0) Oriented to Own Ability Fall Score: 20 Fall Risk Score Definition: No Risk: No action required Comment: Datetime: 02/19/2018 19:27 Stage of : Antepartum Monitor Mode: External Quality: Mild Pattern: Normal: <= 5 Contractions in 10 Minutes Resting Tone Winger: Relaxed Heart Rate FHR Baseline Rate: 140 Monitor Mode: External US FHR Baseline Changes: No Baseline Change Variability: Moderate 6-25 bpm Accelerations: 15X15 Decelerations: None Category: Category I Pain Presence: None/Denies Pain Type: N/A Datetime: 02/19/2018 19:00 Stage of : OB Triage Maternal Assessment Level of Consciousness: Fully Conscious Labor Evaluation Frequency: 3UC/HR Monitor Mode: External Duration (sec)2399: 70-90 Quality: Moderate Resting Tone Winger: Relaxed Heart Rate FHR Baseline Rate: 135 Monitor Mode: External US Variability: Moderate 6-25 bpm Accelerations: 15X15 Decelerations: None Category: Category I Pain Assessment Pain Scale: 0 Pain Goal: 3 Membrane Status: Intact Vaginal Bleeding: None Datetime: 02/19/2018 18:00 Stage of : OB Triage Maternal Assessment Level of Consciousness: Fully Conscious Labor Evaluation Frequency: 0 Monitor Mode: External Resting Tone Winger: Relaxed Heart Rate FHR Baseline Rate: 135 Monitor Mode: External US Variability: Moderate 6-25 bpm Accelerations: 15X15 Decelerations: None Category: Category I Pain Assessment Pain Scale: 0 Pain Goal: 3 Membrane Status: Intact Vaginal Bleeding: None Datetime: 02/19/2018 15:04 Fall Score: 0 Fall Risk Score Definition: No Risk: No action required Datetime: 02/19/2018 14:39 EGA: 37.3 Datetime: 02/16/2018 20:41 Fall Score: 0 Fall Risk Score Definition: No Risk: No action required Datetime: 02/16/2018 20:25 EGA: 37.0 Datetime: 02/06/2018 13:48 EGA: 36.3 Datetime: 01/08/2018 19:25 Fall Score: 20 Fall Risk Score Definition: No Risk: No action required Datetime: 01/08/2018 17:48 Fall Score: 20 Fall Risk Score Definition: No Risk: No action required Datetime: 01/08/2018 13:15 Fall Score: 0 Fall Risk Score Definition: No Risk: No action required Datetime: 12/14/2017 12:51 EGA: 31.3 Datetime: 12/14/2017 10:48 EGA: 27.6 Datetime: 12/14/2017 10:47 Fall Score: 0 Fall Risk Score Definition: No Risk: No action required
[2018-02-24] MEDS ORDERED: INSULIN ASPART [NOVOLOG] 3 ML PEN SC SCH (17:30)
[2018-02-24] MEDS ORDERED: GLUCAGON 1 MG INJ IM PRN (18:00)
[2018-02-24] MEDS ORDERED: DEXTROSE 50% 50 ML SYRINGE IV PRN ×2 (18:00)
[2018-02-24] MEDS ORDERED: GLUCOSE GEL 15 GRAM TUBE PO PRN ×2 (18:00)
[2018-02-24] MEDS ORDERED: GLUCOSE GEL 15 GRAM TUBE BUCCAL PRN (18:00)
[2018-02-24] MEDS: LACTATED RINGER'S 1,000 ML IV SCH ×2 (18:15→20:23)
[2018-02-24] MEDS ORDERED: MISOPROSTOL 200 MCG TAB PR PRN (19:00)
[2018-02-24] MEDS ORDERED: BUTORPHANOL 2 MG INJ IV PRN (19:00)
[2018-02-24] MEDS ORDERED: CARBOPROST 250 MCG INJ IM PRN (19:00)
[2018-02-24] MEDS ORDERED: CEFAZOLIN 2 GM/50 ML (PMX) 50 ML IVPB ONE (19:00)
[2018-02-24] MEDS ORDERED: LIDOCAINE 1% (MPF) 30 ML INJ INJ PRN (19:00)
[2018-02-24] MEDS ORDERED: OXYTOCIN 30 UNITS/LR 500 ML IV PRN (19:00)
[2018-02-24] MEDS ORDERED: OXYTOCIN 30 UNITS/LR 500 ML IV SCH ×2 (19:00)
[2018-02-24] MEDS ORDERED: METHYLERGONOVINE 0.2 MG INJ IM PRN (19:00)
[2018-02-24] MEDS ORDERED: ACCU-CHEK XX SCH ×5 (19:35→21:00)
[2018-02-24] MEDS ORDERED: ONDANSETRON 4 MG INJ IV STA (20:28)
[2018-02-24] MEDS ORDERED: CITRIC ACID/NA CITRATE 30 ML CUP PO ONE (20:30)
[2018-02-24] MEDS ORDERED: ONDANSETRON 4 MG INJ ONE (20:31)
[2018-02-24] MEDS ORDERED: CITRIC ACID/NA CITRATE 30 ML CUP ONE (20:32)
[2018-02-24] MEDS ORDERED: NPH, HUMAN INSULIN ISOPHANE 3ML VIAL SC SCH (21:00)
--- NOTE | 2018-02-24 21:56 | PREAC ---
Date/Time of Note Date/Time of Note DATE: 02/24/18 TIME: 21:54 Anesthesia Eval and Record Evaluation Time Pre-Procedure Interview DATE: 02/24/18 TIME: 21:54 Age 27 Sex female NPO: 8 hrs Preoperative diagnosis Breech Presentation in labor Planned procedure Primary Past Medical History Past Medical History: Includes Endo: Diabetes : : (6), Para: (2), Gestational age: (36), Gestational diabetes, Other (Breech Presentation in Labor) Surgery & Anesthesia Issues No known issue Meds Anticoagulation: No Beta Aryan within 24 hr: No Reason Beta Aryan not given: Pt. not on B-Aryan Reported Medications Insulin NPH Human Isophane (Humulin N) 100 Unit/1 Ml Vial, 8 UNIT SQ QHS, VIAL 02/19/18 Insulin NPH Human Isophane (Humulin N) 100 Unit/1 Ml Vial, 18 UNIT SQ AC BREAKFAST, VIAL 02/16/18 Insulin Regular, Human (Humulin R) 100 Unit/1 Ml Vial, 8 UNIT IJ PC BREAKFAST, VIAL 02/16/18 Multivit/Min/Fol Ac/Iron/Pren* ( S*) 1 Tab Tab, 1 TAB PO DAILY, TAB 04/08/14 Discontinued Reported Medications Insulin Regular, Human (Humulin R) 100 Unit/1 Ml Vial, 8 UNIT IJ QHS, VIAL 02/16/18 Current Medications Lactated Ringer's 1,000 ml @ 125 mls/hr Q8H IV Last administered on 02/24/18at 20:23; Admin Dose 125 MLS/HR; Start 02/24/18 at 16:55 Prenat Multivit/ Scales Inspector/Iron/Folic Ac () 1 tab DAILY PO ; Start 02/25/18 at 09:00 Diagnostic Test (Pha) (Accu-Chek) 1 ea AC MEALS AND BEDTIME XX ; Start 02/24/18 at 21:00 Insulin Human NPH (Humulin N) 18 unit AC BREAKFAST SC ; Start 02/25/18 at 07:05 Diagnostic Test (Pha) (Accu-Chek) 1 ea FBSPP XX ; Start 02/24/18 at 19:35 Insulin Human NPH (Humulin N) 12 unit HS SC ; Start 02/24/18 at 21:00 Insulin Aspart (Novolog Insulin Pen) 8 unit AC BREAKFAST DINNER SC ; Start 02/24/18 at 17:30 Miscellaneous Information 1 ea NOTE XX ; Start 02/24/18 at 18:00 Glucose (Glutose) 15 gm Q15M PRN PO DECREASED GLUCOSE; Start 02/24/18 at 18:00 Glucose (Glutose) 22.5 gm Q15M PRN PO DECREASED GLUCOSE; Start 02/24/18 at 18:00 Dextrose (D50w Syringe) 25 ml Q15M PRN IV DECREASED GLUCOSE; Start 02/24/18 at 18:00 Dextrose (D50w Syringe) 50 ml Q15M PRN IV DECREASED GLUCOSE; Start 02/24/18 at 18:00 Glucagon (Glucagen) 1 mg Q15M PRN IM DECREASED GLUCOSE; Start 02/24/18 at 18:00 Glucose (Glutose) 15 gm Q15M PRN BUCCAL DECREASED GLUCOSE; Start 02/24/18 at 18:00 Butorphanol Tartrate (Stadol) 2 mg Q2H PRN IV PAIN; Start 02/24/18 at 19:00 Lidocaine (Xylocaine 1% (Mpf)) 30 ml ONCE PRN INJ EPISIOTOMY; Start 02/24/18 at 19:00 Oxytocin/Lactated Ringer's 500 ml @ 500 mls/hr ONCE POST IV ; Start 02/24/18 at 19:00 Oxytocin/Lactated Ringer's 500 ml @ 125 mls/hr POST IV ; Start 02/24/18 at 19:00 Oxytocin/Lactated Ringer's 500 ml @ 0 mls/hr ONCE PRN IV VAGINAL BLEEDING; Start 02/24/18 at 19:00 Methylergonovine Maleate (Methergine) 0.2 mg ONCE PRN IM VAGINAL BLEEDING; Start 02/24/18 at 19:00 Carboprost Tromethamine (Hemabate) 250 mcg ONCE PRN IM VAGINAL BLEEDING; Start 02/24/18 at 19:00 Misoprostol (Cytotec) 1,000 mcg ONCE PRN [place] VAGINAL BLEEDING; Start 02/24/18 at 19:00 Meds reviewed: Yes Allergies Coded Allergies: No Known Allergy (Unverified , 02/24/18) Allergies Reviewed: Yes Labs/Studies Labs Reviewed: Reviewed by anesthesiologist Result Diagram: 02/24/18190402/24/181904 Laboratory Tests 02/24/18 19:05 Blood Bank Test 02/24/18 19:05 Antibody Screen NEGATIVE Blood Type O POSITIVE Rh Immune Globulin Candidate NO test: Positive Studies: ECG (n/a), CXR (n/a) Pre-procedure Exam Last vitals Vital Signs Date Temp Pulse Resp B/P (MAP) Pulse Ox O2 O2 Flow FiO2 Time Delivery Rate 02/24/18 98.8 107 20 118/77 Room Air 13:40 (91) Airway: Adequate mouth opening, Adequate thyromental dist Mallampati: Mallampati II Teeth: Normal Lung: Normal Heart: Normal ASA Physical Status ASA physical status: 2 Emergency: E Planned Anesthetic Neuraxial: Spinal Planned Pain Management Sub-arachniod narcotics, Parenteral pain med Pre-operative Attestations Prior to commencing anesthesia and surgery, the patient was re-evaluated, there was verification of: *The patient's identity *The results of appropriate recent lab work and preoperative vital signs *The above evaluation not changing prior to induction *Anesthetic plan, risk benefits, alternative and complications discussed with patient/family; questions answered; patient/family understands, accepts and wishes to proceed. CARLOS CHAVARRIA MD Feb 24, 2018 21:56
[2018-02-24] MEDS ORDERED: DEXTROSE 5%-LR 1,000 ML IV SCH (22:00)
[2018-02-24] MEDS ORDERED: PHENYLephrine (100 MCG/ML) 10ML SYG ONE (22:11)
[2018-02-24] MEDS ORDERED: morphine SULFATE/PF (10 MG/10 ML) INJ ONE (22:11)
[2018-02-24] MEDS ORDERED: OXYTOCIN 10 UNIT INJ ONE (22:11)
--- NOTE | 2018-02-24 22:21 | HP ---
Date/Time of Note Date/Time of Note DATE: 02/24/18 TIME: 22:13 OB - History Hx of Present Free Text/Dictation This is the third admission for this 27-year-old female 6 para 2 AB 3 at 38 weeks with a known breech presentation complaining of onset of labor pain started a few hours prior to admission Patient is gestational diabetic Last Menstrual Period: May 25, 2017 Estimated Due Date: Mar 09, 2018 : 6 Para: 2 Spontaneous : 3 Care: Good Care Ultrasounds: Normal mid trimester US Obstetrical Complications: Gestational Diabetes Medical Complications: None Past Family/Social History * Past Medical, Surgical, Family and Obstetric Histories reviewed from chart. Blood Type: O+ Rubella: immune RPR/VDRL: Negative GBS Status: Negative HBsAG: Negative OB Admission Exam Vital Signs Vital Signs Vital Signs Date Temp Pulse Resp B/P (MAP) Pulse Ox O2 O2 Flow FiO2 Time Delivery Rate 02/24/18 98.8 107 20 118/77 Room Air 13:40 (91) Physical Exam HEENT: WNL Heart: Rhythm Normal Lungs: Clear, Equal Abdomen: WNL Extremities: Normal Reflexes: Normal Cervical Dilatation: 1cm Effacement: 25% Station: -3 Membranes: Intact Heart Rate: 140's Accelerations: Accelerations Present Decelerations: No Decelerations Varibility: Marked Contractions on Admission: < 5 Minutes Apart Date/Time Contractions Began: 02/24/2017 Frequency of Contractions: Every 2-3 minutes Duration: Over 60 seconds Intensity: Moderate Last 72 hourBlood Glucose Bedside Glucose - 72 Hours Test 02/24/18 19:17 Bedside Glucose 69 mg/dL (70-220) L Last 72 hours Lab Results CBC & BMP 02/24/18 19:05 Liver Function Test 02/24/18 19:05 Alanine Aminotransferase (ALT/SGPT) 20 Albumin 3.3 Alkaline Phosphatase 168 H Aspartate Amino Transf (AST/SGOT) 21 Direct Bilirubin 0.00 Total Protein 6.6 OB Assessment/Plan Other Assessment: Term gestation Breech presentation which was confirmed by ultrasound Labor pains Gestational diabetes Other plan: Primary delivery JACOB CAMARGO MD Feb 24, 2018 22:21
[2018-02-24] MEDS ORDERED: NALOXONE (0.4 MG/ML) INJ IV PRN (22:30)
[2018-02-24] MEDS ORDERED: OXYCODONE/ACETAMINOPHEN (5/325) TAB PO PRN (22:30)
[2018-02-24] MEDS ORDERED: NALBUPHINE HCL (10 MG/1 ML) INJ IV PRN (22:30)
[2018-02-24] MEDS ORDERED: HYDROmorphONE 0.5 MG/0.5 ML SYG IV PRN ×2 (22:30)
[2018-02-24] MEDS ORDERED: morphine 2 MG INJ IV PRN ×2 (22:30)
[2018-02-24] MEDS ORDERED: DIPHENHYDRAMINE 50 MG INJ IV PRN ×2 (22:30)
[2018-02-24] MEDS ORDERED: HYDROmorphONE 1 MG/5 ML IV SYRINGE IV PRN ×2 (22:30)
[2018-02-24] MEDS ORDERED: MEPERIDINE 25 MG INJ IV PRN (22:30)
[2018-02-24] MEDS ORDERED: ONDANSETRON 4 MG INJ IV PRN ×2 (22:30)
[2018-02-24] MEDS ORDERED: HYDROCODONE/APAP (5/325) TAB PO PRN (22:30)
[2018-02-24] MEDS ORDERED: KETOROLAC 30 MG INJ IV PRN (22:30)
[2018-02-24] MEDS ORDERED: FENTAnyl 50 MCG/ML VIAL IV PRN ×2 (22:30)
[2018-02-24] MEDS ORDERED: EPHEDrine SULFATE 50 MG/5 ML SYG IV PRN (22:30)
[2018-02-24] MEDS ORDERED: ACETAMINOPHEN 500 MG TAB PO PRN (22:30)
[2018-02-24] MEDS ORDERED: DEXAMETHASONE 4 MG/ML 1 ML INJ ONE (22:41)
[2018-02-24] MEDS ORDERED: METOCLOPRAMIDE 10 MG INJ ONE (22:41)
[2018-02-24] MEDS ORDERED: KETOROLAC 30 MG INJ ONE (22:41)
[2018-02-24] MEDS ORDERED: MEPERIDINE 100 MG INJ ONE (22:53)
[2018-02-24] MEDS ORDERED: KETOROLAC 60 MG INJ IM STA (23:06)
--- NOTE | 2018-02-24 23:15 | OPR ---
Operative Report Planned Procedure Free Text/Dictation 27-year-old female at 38 weeks with labor pain and breech presentation Procedure date Feb 24, 2018 Procedure(s) Primary section Performed by see signature line Media Services Specialist: KE RAM MD Anesthesiologist: CARLOS CHAVARRIA MD Pre-procedure diagnosis 38 weeks gestation Labor pains Breech presentation [id number] Anesthesia Type: [id number] spinal Post-Procedure Post-procedure diagnosis Status post primary section Findings Live Baby with luis felipe breech presentation Clear amniotic fluid Normal-appearing right and left fallopian tubes and ovaries Estimated Blood Loss: 500 - 600 mls Specimen(s) none Grafts/Implant(s) none Complication(s) none Pt Condition post procedure: stable Disposition: PACU Procedure Description Under satisfactory anaesthesia a Pfannenstiel incision was made two fingerbreadth above and parallel to the symphysis of pubis. Incision was extended laterally to the border of the Recti muscles on either sides. Incision was carried down with sharp and blunt dissection until fascia was reached. Anterior Recti muscle fascia was incised in mid portion and incision extended laterally to the border of skin incision. Fascia was mobilized from muscle superiorly and Recti muscles were from midline using sharp and blunt dissection. Peritoneum was visualized; Avoiding bowel and bladder it was incised . Incision was extended superiorly and inferiorly. Bladder blade was placed. Posterior peritoneum covering the lower segment of the uterus and lower segment of the uterus were incised. Incision was extended laterally to the border of Round Lig. on either sides and baby was delivered via total breech extraction without any difficulty. Amniotic fluid appeared clear. Cord blood was obtained and cord had 3 vessels . Placenta was delivered spontaneously and appeared intact and complete. Intrauterine cavity was rubbed with a laparotomy sponge. Uterine incision was closed in 2 layers using running stitches of No1 Monocryl. Hemostasis appeared secure. Ovaries and Fallopian tubes were within normal limits. Announcing needle, lap sponge and instrument count to be correct abdomen was closed in layers as follows: Peritoneum and Recti muscles with running stitches of 2-0 Vicryl. Fascia with running stitch of No 1 PDS. Subcutaneous tissue with running stitches of 2-0 Monocryl and skin was closed using alison. Patient tolerated the procedure well and was transferred to [facility] in good condition. JACOB CAMARGO MD Feb 24, 2018 23:15
[2018-02-24] MEDS ORDERED: AZITHROMYCIN 500MG/NS (PMX) 250 ML IVPB ONE (23:30)
--- NOTE | 2018-02-24 23:34 | PAC ---
Date/Time of Note Date/Time of Note DATE: 02/24/18 TIME: 23:34 Post-Anesthesia Notes Post-Anesthesia Note Last documented vital signs Vital Signs Date Temp Pulse Resp B/P (MAP) Pulse Ox O2 O2 Flow FiO2 Time Delivery Rate 02/24/18 98.8 107 20 118/77 98 Room Air 23:40 (91) Activity: WNL Respiratory function: WNL Cardiovascular function: WNL Mental status: Baseline Pain reasonably controlled: Yes Hydration appropriate: Yes Nausea/Vomiting absent: Yes CARLOS CHAVARRIA MD Feb 24, 2018 23:34
[2018-02-25] VITALS (7 sets, daily range): BP systolic 98–113; BP diastolic 58–82; PULSE 65–82; RESP 18–20
[2018-02-25] MEDS ORDERED: LACTATED RINGER'S 1,000 ML IV SCH (02:11)
[2018-02-25] MEDS ORDERED: CARBOPROST 250 MCG INJ IM PRN (02:30)
[2018-02-25] MEDS ORDERED: NA PHOSPHATE/BIPHOS 133 ML ENEMA PR PRN (02:30)
[2018-02-25] MEDS ORDERED: METHYLERGONOVINE 0.2 MG INJ IM PRN (02:30)
[2018-02-25] MEDS ORDERED: OXYCODONE/ACETAMINOPHEN (5/325) TAB PO PRN (02:30)
[2018-02-25] MEDS ORDERED: LANOLIN HPA 1 PKT TOP PRN (02:30)
[2018-02-25] MEDS ORDERED: MISOPROSTOL 200 MCG TAB PR PRN (02:30)
[2018-02-25] MEDS ORDERED: HYDROCODONE/APAP (5/325) TAB PO PRN (02:30)
[2018-02-25] MEDS ORDERED: OXYTOCIN 30 UNITS/LR 500 ML IV PRN (02:30)
[2018-02-25] MEDS ORDERED: GLUCOSE GEL 15 GRAM TUBE PO PRN ×2 (03:00)
[2018-02-25] MEDS ORDERED: GLUCOSE GEL 15 GRAM TUBE BUCCAL PRN (03:00)
[2018-02-25] MEDS ORDERED: DEXTROSE 50% 50 ML SYRINGE IV PRN ×2 (03:00)
[2018-02-25] MEDS ORDERED: GLUCAGON 1 MG INJ IM PRN (03:00)
[2018-02-25] MEDS: CEFAZOLIN 2 GM/50 ML (PMX) 50 ML IVPB SCH ×3 (05:28→21:02)
[2018-02-25] MEDS ORDERED: NPH, HUMAN INSULIN ISOPHANE 3ML VIAL SC SCH (07:05)
[2018-02-25] MEDS: ACCU-CHEK XX SCH ×4 (08:45→21:02)
[2018-02-25] MEDS: PRENATAL VITAMIN PO SCH (08:51)
[2018-02-25] MEDS: SENNA/DOCUSATE NA (8.6MG/50MG) TAB PO SCH ×2 (08:51→21:00)
[2018-02-25] MEDS: metFORMIN 500 MG TAB PO SCH ×2 (08:52→17:50)
[2018-02-25] MEDS ORDERED: BISACODYL 10 MG SUPP PR ONE (11:00)
[2018-02-25] MEDS: CLINDAMYCIN 300 MG CAP PO SCH ×3 (12:03→23:42)
[2018-02-25] MEDS ORDERED: morphine 2 MG INJ IV PRN ×2 (18:30)
--- NOTE | 2018-02-25 19:19 | PN ---
Date/Time of Note Date/Time of Note DATE: 02/25/18 TIME: 19:18 Assessment/Plan VTE Prophylaxis VTE Prophylaxis Intervention: ambulation Lines/Catheters IV Catheter Type (from Nrs): Saline Lock Assessment/Plan Assessment/Plan Status post postop day #1 Will advance diet and ambulate Continue to monitor vital signs Repeat CBC following day for elevated white count and a left shift Subjective 24 Hr Interval Summary No bowel movement but passing flatus Constitutional: no complaints, improved, ambulates, BM, flatus, urine output Pain Control: well controlled Exam/Review of Systems Vital Signs Vitals Vital Signs Date Temp Pulse Resp B/P (MAP) Pulse Ox O2 O2 Flow FiO2 Time Delivery Rate 02/25/18 97.9 65 20 103/59 99 16:19 (74) 02/25/18 Room Air 16:00 Intake and Output 02/24/18 02/24/18 02/25/18 1515:00 23:00 07:00 IntakeIntake Total 3500 ml 2300 ml OutputOutput Total 750 ml 1977 ml BalanceBalance 2750 ml 323 ml Exam Free Text/Dictation Abdomen is soft present bowel sounds and abdomen does not seem distended Incision is covered Constitutional: alert, oriented, well developed Psych: no complaints, nl mood/affect Head: normocephalic, atraumatic Eyes: nl conjunctiva, EOMI, nl lids, nl sclera ENMT: nl external ears & nose, nl lips & teeth, nl nasal mucosa & septum, mucosa pink and moist Neck: supple, non-tender Respiratory: clear to auscultation, normal air movement Cardiovascular: regular rate and rhythm, nl pulses Gastrointestinal: soft, nl liver, spleen, non-tender Musculoskeletal: nl extremities to inspection, nl gait and stance Extremities: normal pulses Neurological: RESTORATIVE COORDINATOR II-XII intact, nl mental status, nl speech, nl strength Skin: nl turgor, rash or lesions Lymph: nl lymph nodes Results Result Diagram: 02/25/18 0727 02/24/18 1905 JACOB CAMARGO MD Feb 25, 2018 19:19
[2018-02-26 04:04] VITALS: BP 101/69; PULSE 70; RESP 18
[2018-02-26] MEDS ORDERED: IBUPROFEN 800 MG TAB ONE (05:04)
[2018-02-26] MEDS: CLINDAMYCIN 300 MG CAP PO SCH ×2 (05:44→11:48)
[2018-02-26 08:00] VITALS: BP 102/66; PULSE 74; RESP 17
[2018-02-26] MEDS: ACCU-CHEK XX SCH ×4 (08:08→20:52)
[2018-02-26] MEDS: PRENATAL VITAMIN PO SCH (08:55)
[2018-02-26] MEDS: metFORMIN 500 MG TAB PO SCH ×2 (08:56→18:02)
[2018-02-26] MEDS: SENNA/DOCUSATE NA (8.6MG/50MG) TAB PO SCH (09:00)
[2018-02-26] MEDS: IBUPROFEN 800 MG TAB PO SCH ×2 (12:26→22:05)
--- NOTE | 2018-02-26 14:30 | DS ---
Date/Time of Note Date/Time of Note DATE: 02/26/18 TIME: 14:29 Discharge Summary Admission/Discharge Info Admit Date/Time Feb 24, 2018 at 16:50 Discharge Date/Time February 26February 27, 2018 Discharge Diagnosis Status post for breech presentation Patient Condition: Good Procedures Primary Hx of Present Illness 18-year-old female underwent primary section without postop complications Hospital Course Patient tolerated diet well was ambulating without problems Discharge home on third day with good prognosis in good condition Home Meds Reported Medications Insulin NPH Human Isophane (Humulin N) 100 Unit/1 Ml Vial, 8 UNIT SQ QHS, VIAL 02/19/18 Insulin NPH Human Isophane (Humulin N) 100 Unit/1 Ml Vial, 18 UNIT SQ AC BREAKFAST, VIAL 02/16/18 Insulin Regular, Human (Humulin R) 100 Unit/1 Ml Vial, 8 UNIT IJ PC BREAKFAST, VIAL 02/16/18 Multivit/Min/Fol Ac/Iron/Pren* ( S*) 1 Tab Tab, 1 TAB PO DAILY, TAB 04/08/14 Discontinued Reported Medications Insulin Regular, Human (Humulin R) 100 Unit/1 Ml Vial, 8 UNIT IJ QHS, VIAL 02/16/18 Follow-up Plan To 3 days in clinic for staple removal Primary Care Provider Not On Staff Doctor Time spent on discharge: > 30 minutes Pending Labs Laboratory Tests Test 02/25/18 14:40 02/25/18 21:00 02/26/18 06:14 02/26/18 08:08 Bedside 86 118 69 Glucose mg/dL (70-220) mg/dL (70-220) mg/dL (70-220) White Blood 11.0 Count 10^3/ul (4.8-1 0.8) Red Blood 3.75 Count 10^6/ul (4.20- 5.40) Hemoglobin 11.2 g/dl (12.0-16. 0) Hematocrit 34.8 % (37.0-47.0) Mean 92.8 Corpuscular fl (82.0-101.0 Volume ) Mean 29.9 Corpuscular pg (29.0-33.0) Hemoglobin Mean 32.2 Corpuscular g/dl (32.0-37. Hemoglobin Conc 0) ent Red Cell 13.4 Distribution % (11.5-14.5) Width Platelet Count 210 10^3/UL (140-4 15) Mean Platelet 11.1 Volume fl (7.4-10.4) Immature 0.400 Granulocytes % % (0.001-0.429 ) Neutrophils % 64.6 % (39.0-77.0) Lymphocytes % 25.8 % (15.0-51.0) Monocytes % 8.1 % (0.0-11.0) Eosinophils % 0.6 % (0.0-7.0) Basophils % 0.5 % (0.0-2.0) Nucleated Red 0.0 Blood Cells % /100WBC (0.0-0 .0) Immature 0.040 Granulocytes # 10^3/ul (0.0-0 .031) Neutrophils # 7.1 10^3/ul (1.6-7 .5) Lymphocytes # 2.8 10^3/ul (0.8-2 .9) Monocytes # 0.9 10^3/ul (0.3-0 .9) Eosinophils # 0.1 10^3/ul (0.0-0 .5) Basophils # 0.1 10^3/ul (0.0-0 .1) Nucleated Red 0.0 Blood Cells # 10^3/ul (0.0-0 .0) Test 02/26/18 08:42 02/26/18 10:48 Bedside 121 70 Glucose mg/dL (70-220) mg/dL (70-220) JACOB CAMARGO MD Feb 26, 2018 14:30
--- NOTE | 2018-02-26 14:32 | DS ---
Date/Time of Note Date/Time of Note DATE: 02/26/18 TIME: 14:31 Obstetrical Discharge Record Final Diagnosis Final Diagnosis: Term delivered Other Final Diagnosis Status post Section Section: Primary Primary Indication Breech presentation in labor Complications Gestational Diabetes Condition on Discharge Physical Assessment Last Vitals: See nurse's notes Voiding: Yes Bowel Movement: Yes Breast: Soft, non-tender, Filling Fundus: Firm Abdomen and Incision: Abdomen is soft with present bowel sounds Incision is healing well without induration and or erythema Episiotomy: Not applicable Calf Tenderness: No Patient Condition: Good JACOB CAMARGO MD Feb 26, 2018 14:32
--- NOTE | 2018-02-26 14:34 | PD.PPDC ---
H[employer]ER Discharge Instruction Provider Information Physician Information 27-year-old female had primary section Diagnosis [id number] Final Diagnosis: [id number] Status post primary Condition [id number] Patient Condition: [id number] Good Diet [id number] Diet: Jwgyb1c Resume Regular Diet Activity/Restrictions [id number] Activity: Lghzh2a May Shower [id number] Restrictions: Wgtqg8k No Exercising No Lifting Nothing in the Vagina [id number] Return to Work or School: Wclsm4t Apr 28, 2018 Follow-up Follow-up with Physician: 2, 3, Day/Days (In clinic for staple removal) Return to clinic for [id number] [employer]ALLPAPER CLE[employer]ER Instructions: Yjujl4z Fever greater than 101 Chills [id number] OB Instructions: Lpceh8h Breast Tenderness Depression Comment: Pelvic rest and no hard activity for 2 months [id number] Surgical Instructions: Xlpdt2e Incisional Drainage Incisional Redness JACOB CAMARGO MD Feb 26, 2018 14:34
[2018-02-26] MEDS ORDERED: ACET325T33 PO (14:36)
[2018-02-26] MEDS ORDERED: IBUP800T48 PO (14:36)
[2018-02-26] MEDS ORDERED: METF-849 PO (14:36)
[2018-02-26] MEDS: ACETAMINOPHEN 325 MG TAB PO SCH ×3 (15:02→21:29)
[2018-02-26 15:50] VITALS: BP 104/62; PULSE 88; RESP 18
[2018-02-26] MEDS: LOPERAMIDE 2 MG CAP PO PRN ×2 (16:38→22:05)
[2018-02-26 20:00] VITALS: BP 108/71; PULSE 86; RESP 19
[2018-02-27 04:15] VITALS: BP 96/61; PULSE 82; RESP 19
[2018-02-27] MEDS: IBUPROFEN 800 MG TAB PO SCH (05:48)
[2018-02-27] MEDS: metFORMIN 500 MG TAB PO SCH (08:50)
[2018-02-27] MEDS: PRENATAL VITAMIN PO SCH (08:51)
[2018-02-27] MEDS ORDERED: MEASLES,MUMPS,RUBELLA VACCINE INJ SC* ONE (09:00)
[2018-02-27] MEDS ORDERED: DIPHTH/TET/ACEL PERTUSS (ADULT) 0.5 ML VIAL IM* ONE (09:00)
[2018-02-27] MEDS: ACETAMINOPHEN 325 MG TAB PO SCH (11:36)
[2018-02-27] MEDS ORDERED: IBUPROFEN 800 MG TAB PO SCH (23:00)
== END 2018-02-27 14:50 | disposition home or self-care (01) | DRG 788 ==
LOC: OBT 13:29 → L-D 13:29 → OBT 16:50 → L-D 16:50 → PP1 02-25 02:06
PROVIDERS: ADMIT Obstetrics & Gynecology; ATTEND Obstetrics & Gynecology
PROC: 10D00Z1 Extraction of Products of Conception, Low, Open Approach (ICD-10-PCS; principal; 2018-02-24 21:30)
DX: O32.1XX0 Maternal care for breech presentation, not applicable or unspecified (principal); O24.429 Gestational diabetes mellitus in childbirth, unspecified control; Z3A.38 38 weeks gestation of pregnancy; Z37.0 Single live birth
CPT/HCPCS: 76818; 80053; 82962; 85025; 85610; 85730; 86592; 86850; 86900; 86901; 87075; 87340; 88307; 99464; G0463; J0456; J0690; J1100; J1200; J1815; J1885; J2175; J2274; J2370; J2405; J2590; J2765; J7120; J7121

== ENCOUNTER 2018-07-08 13:49 | Emergency (ER) | payer OTHER ==
[~2018-07-08] VITALS: Wt 90.0 kg
[~2018-07-08 13:49] MED LIST changes: +ACET325T33 PO; +IBUP800T48 PO; -INSU100V3 IJ; +METF-849 PO; -NPH,100V SQ
[2018-07-08 13:50] VITALS: BP 119/66; PULSE 66; RESP 18
--- NOTE | 2018-07-08 15:56 | ERD ---
ER Documentation Chief Complaint Chief Complaint RIGHT WRIST PAIN HPI She is a 28 years old female with past medical history of diabetes mellitus type 2 presented to the clinic with right thumb/hand/wrist pain since yesterday. Patient reports cleaning her house yesterday when she accidentally slipped and held onto the sofa with right hand. Patient states that she pulled her right hand and injured it. Patient admits to using OTC Tylenol with resolution yesterday, however pain still persist today and is requesting imaging of right thumb. States that her right thumb is her biggest concern and states that every time she has moves it significant pain occurs (8 out of 10). Patient denies . ROS All systems reviewed and are negative except as per history of present illness. Medications Home Meds Active Scripts Ibuprofen* (Motrin*) 800 Mg Tab, 800 MG PO Q6H PRN for PAIN AND OR ELEVATED TEMP, #30 TAB Prov:STEFFANY KWONG PA-C 07/08/18 Metformin* (Glucophage*) 500 Mg Tab, 500 MG PO BID WITH MEALS, #120 TAB 1 Refill Prov:JACOB CAMARGO MD 02/26/18 Ibuprofen* (Motrin*) 800 Mg Tab, 800 MG PO Q8, #60 TAB 0 Refills Prov:JACOB CAMARGO MD 02/26/18 Acetaminophen* (Tylenol*) 325 Mg Tablet, 650 MG PO Q6H, #60 TAB 0 Refills Prov:JACOB CAMARGO MD 02/26/18 Reported Medications Multivit/Min/Fol Ac/Iron/Pren* ( S*) 1 Tab Tab, 1 TAB PO DAILY, TAB 04/08/14 Allergies Allergies: Coded Allergies: No Known Allergy (Unverified , 02/24/18) PMhx/Soc Diabetes mellitus type II History of Surgery: Yes ( R axullary hydrogenit Sx) Anesthesia Reaction: No Hx Neurological Disorder: No Hx Respiratory Disorders: No Hx Cardiac Disorders: No Hx Psychiatric Problems: No Hx Miscellaneous Medical Probl: No Hx Alcohol Use: No Hx Substance Use: No Hx Tobacco Use: No FmHx Mother had diabetes mellitus and coronary artery disease Physical Exam Vitals Vital Signs Date Temp Pulse Resp B/P (MAP) Pulse Ox O2 O2 Flow FiO2 Time Delivery Rate 07/08/18 98.1 66 18 119/66 99 13:50 (83) Physical Exam Const: No acute distress Head: Atraumatic Eyes: Normal Conjunctiva Neur: Awake and alert Psych: Normal Mood and Affect Right Hand Exam: Tenderness to palpation of right thumb. No signs of gross deformity. Swelling. Full range of motion intact with difficulty flexion due to pain. Results 24 hrs Laboratory Tests Test 07/08/18 16:05 POC Beta HCG, Qualitative NEGATIVE Current Medications Medications Dose Sig/Del Start Time Status Last (Trade) Ordered Route PRN Stop Time Admin Dose Reason Admin Ketorolac 30 mg ONCE STAT 07/08/18 DC 07/08/18 Tromethamine IM 15:57 16:13 (Toradol) 07/08/18 15:58 Procedures/MDM Was seen and evaluated for right thumb/wrist/hand pain. Patient was informed that did not need any imaging however patient insisted on imaging. Right hand x-ray is grossly unremarkable. Patient stable and ready for discharge. Patient was informed to apply ice to injury. Departure Diagnosis: Primary Impression: Pain of right thumb Condition: Stable Patient Instructions: Finger Contusion Referrals: [facility] Additional Instructions: Paciente aconseja volver a Departamento de urgencias inmediatamente para sntomas nuevos o que empeoran . Paciente aconseja posteriores con el PCP en 2-3 mesa . Paciente verbaliza la comprehensin y est de acuerdo con el tratamiento y el curso de accin. Si el paciente no tiene ninguna de atencin primaria pueden seguir con [facility] [address] [place] [address] o [facility] + [address] [address] STEFFANY KWOGN PA-C July 08, 2018 15:56
[2018-07-08] MEDS ORDERED: KETOROLAC 30 MG INJ IM STA (15:57)
[2018-07-08] MEDS ORDERED: IBUP800T48 PO (16:37)
== END 2018-07-08 16:44 | disposition home or self-care (01) ==
LOC: FTE 13:49
DX: M79.644 Pain in right finger(s) (principal); E11.9 Type 2 diabetes mellitus without complications; Z79.84 Long term (current) use of oral hypoglycemic drugs
CPT/HCPCS: 73130; 81025; 96372; J1885; Z7502

== ENCOUNTER 2018-08-17 02:39 | Emergency (ER) | payer OTHER ==
[~2018-08-17] VITALS: Ht 165.1 cm; Wt 70.9 kg
[2018-08-17 02:41] VITALS: Ht 165.1 cm; Wt 70.9 kg
--- NOTE | 2018-08-17 06:01 | ERD ---
ER Documentation Chief Complaint Chief Complaint R FOOT PAIN X'S 1 DAY HPI 28-year-old female presents complaining of right second toe pain. Patient was in her usual state of health until 1 AM this morning at which time while she was at work she had something fall onto her toe. Since then she is had discomfort in the toe. She reports no numbness, tingling, loss of function. ROS All systems reviewed and are negative except as per history of present illness. Medications Home Meds Active Scripts Ibuprofen* (Motrin*) 800 Mg Tab, 800 MG PO Q6H PRN for PAIN AND OR ELEVATED TEMP, #30 TAB Prov:STEFFANY KWONG PA-C 07/08/18 Metformin* (Glucophage*) 500 Mg Tab, 500 MG PO BID WITH MEALS, #120 TAB 1 Refill Prov:JACOB CAMARGO MD 02/26/18 Ibuprofen* (Motrin*) 800 Mg Tab, 800 MG PO Q8, #60 TAB 0 Refills Prov:JACOB CAMARGO MD 02/26/18 Acetaminophen* (Tylenol*) 325 Mg Tablet, 650 MG PO Q6H, #60 TAB 0 Refills Prov:JACOB CAMARGO MD 02/26/18 Reported Medications Multivit/Min/Fol Ac/Iron/Pren* ( S*) 1 Tab Tab, 1 TAB PO DAILY, TAB 04/08/14 Allergies Allergies: Coded Allergies: No Known Allergy (Unverified , 02/24/18) PMhx/Soc History of Surgery: Yes (CSECTION X 1 DAY) Anesthesia Reaction: No Hx Neurological Disorder: No Hx Respiratory Disorders: No Hx Cardiac Disorders: No Hx Psychiatric Problems: No Hx Miscellaneous Medical Probl: No Hx Alcohol Use: No Hx Substance Use: No Hx Tobacco Use: No Smoking Status: Never smoker Physical Exam Vitals Vital Signs Date Temp Pulse Resp B/P (MAP) Pulse Ox O2 O2 Flow FiO2 Time Delivery Rate 08/17/18 97.6 76 18 116/77 100 02:41 (90) Physical Exam General: well developed, well nourished, in no distress. Neuro: Normal speech, gait, balance Extremity: The right foot demonstrates ecchymosis and tenderness to palpation about the second toe. There is no rotational deformity. Patient has normal tendon function to extension and flexion of the toe. Patient is neurovascular intact. Skin is intact. Departure Diagnosis: Primary Impression: Injury of foot Condition: Stable Patient Instructions: Crush Injury, Foot/Toe PARKER SYLVESTER Aug 17, 2018 06:01
[2018-08-17 06:10] VITALS: BP 124/77; PULSE 70; RESP 20
== END 2018-08-17 06:26 | disposition home or self-care (01) ==
LOC: FTE 02:39
DX: S90.111A Contusion of right great toe without damage to nail, initial encounter (principal); W20.8XXA Other cause of strike by thrown, projected or falling object, initial encounter; Y92.89 Other specified places as the place of occurrence of the external cause
CPT/HCPCS: L3260; Z7502